=== PATIENT | male | born 1985 | race Caucasian/White ===

== ENCOUNTER 2020-06-13 01:05 | Emergency (ER) | payer OTHER, SELFPAY ==
[2020-06-13 02:13] VITALS: BP 119/71; PULSE 80; RESP 18; TEMP 36.7; O2SAT 98; BMI 22.9
--- NOTE | 2020-06-13 04:51 | PC.NURSE ---
pt was brought back to room 2, waited just a couple of min and walked to the waiting room where his ride was waiting for him. this rn had a conversation with the encouraged the pt to be seen, pt states he is feeling better and doesnt need to be seen. pt was seen leaving the hospital while in the waiting room then came back in. Question of pt using herion while waiting to be brought back. pt . pt had a steady gait. aox3 no s/s of distress. pt left without treatment.
== END 2020-06-13 04:45 | disposition left against medical advice (07) ==
PROVIDERS: Emergency Provider Emergency Medicine; PCP Internal Medicine
DX: M79.643 Pain in unspecified hand (principal); F11.10 Opioid abuse, uncomplicated
CPT/HCPCS: 99282

== ENCOUNTER 2020-09-06 15:28 | Emergency (ER) | payer OTHER, SELFPAY ==
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
--- NOTE | ~2020-09-06 | CT_ITS ---
EXAMINATION: CT HEAD WITHOUT CONTRAST CLINICAL INFORMATION: Slurred speech since 11:00 AM. COMPARISON: Outside CT head noncontrast 07/27/2020, 07/18/2020, 07/16/2020 ([facility]). TECHNIQUE: Contiguous axial imaging was performed from the skull base to vertex without intravenous administration of contrast. Additional 2-D coronal and sagittal reformatted images are generated on the CT workstation and uploaded to PACS. This CT examination was performed using dose optimization techniques as appropriate, variously including the following: *Automated exposure control *Adjustment of mA and/or kV according to patient size (this includes techniques or standardized protocols for targeted exams where dose is matched to indication/reason for exam; i.e. extremities or head) *Use of iterative reconstruction technique DLP: 668 mGy-cm FINDINGS: There is no intracranial hemorrhage, hematoma, or extra-axial fluid collection. The ventricles are normal in size. There is no hydrocephalus, edema, or mass effect. The blue-white matter differentiation appears symmetric. There is no visible acute territorial infarct or mass lesion. No acute calvarial fracture. There is no pneumocephalus or orbital emphysema. There are no air-fluid levels in the sinuses or middle ears or mastoids. The fact posterior lateral left maxillary sinus wall again seen with some herniation of infratemporal fossa fat similar to outside exams. There is hardware in the upper cervical spine. CT/CT head/brain wo con IMPRESSION: No acute intracranial abnormality.
[2020-09-06 15:39] VITALS: BP 105/72; BP 116/75; PULSE 80; PULSE 97; RESP 18; TEMP 36.5; O2SAT 100; O2SAT 98; BMI 20.9
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
[2020-09-06 16:51] LABS: MANUAL DIFF FLAG NO
[2020-09-06 16:53] LABS: Basophils Percent Auto 0.3 % (0-2); Eosinophils Absolute Auto 0.1 X10*3/uL (0.0-0.4); Eosinophils Percent Auto 1.9 % (0-4); Hematocrit 38.1 % (42-52); Hemoglobin 12.4 g/dl (14.0-18.0); Imm Gran Abs Auto 0.03 X10*3/uL (0.00-0.03); Imm Gran Pct Auto 0.5 % (0.0-0.4); Lymphocytes Absolute Auto 1.4 X10*3/uL (1.2-4.9); Lymphocytes Percent Auto 22.6 % (20-40); Mean Corpuscular HGB Conc 32.5 g/dl (31.0-36.0); Mean Corpuscular Volume 89.2 fL (80-98); Mean Platelet Volume 8.4 fL (9.4-12.4); Monocytes Absolute Auto 0.6 X10*3/uL (0.1-1.2); Monocytes Percent Auto 10.2 % (2-11); Neutrophils Percent Auto 64.5 % (45-73); Platelet Count 530 X10*3/uL (160-400); Red Blood Count 4.27 X10*6/uL (4.60-5.80); Red Cell Distribution Width 16.3 % (11.0-16.0); White Blood Count 6.2 X10*3/uL (4.8-10.8)
[2020-09-06 16:58] LABS: INTERNATIONAL NORM RATIO 1.2 (0.9-1.1); Prothrombin Time 13.5 SEC (9.9-13.0)
[2020-09-06 17:17] LABS: Alanine Aminotransferase 9 U/L (0-40); Albumin Level 4.4 g/dL (3.5-5.0); Alkaline Phosphatase 314 U/L (39-117); Anion Gap 14 (12-20); Aspartate Amino Transferase 13 U/L (5-37); Bilirubin Direct 0.2 mg/dL (0.0-0.5); Bilirubin Total 0.4 mg/dL (0.0-1.0); Blood Urea Nitrogen 8 mg/dL (9-16); Calcium 10.4 mg/dL (8.4-10.2); Carbon Dioxide 29 mmol/L (22-29); Chloride 102 mmol/L (96-108); Creatinine Clr Calc Pharmacy 131.3; Estimated Glomerular Filt Rate > 60; Glucose Random 99 mg/dL (60-115); Magnesium 2.1 mg/dL (1.6-2.6); Potassium 4.3 mmol/L (3.3-5.1); Sodium 141 mmol/L (135-145); Total Protein 7.6 g/dL (6.5-8.0)
[2020-09-06 18:18] VITALS: BP 103/68; PULSE 87; RESP 16; O2SAT 99
[2020-09-06 19:36] LABS: Glucose Urine UA NEG (NEG); Leukocyte Esterase Urine NEG (NEG); Nitrite Urine NEG (NEG); PH 7.5 (5.0-8.0); Urine Blood NEG (NEG); Urine Ketones NEG (NEG); Urine Protein NEG (NEG-TRACE)
[2020-09-06 19:39] LABS: Appearance Urine HAZY; Color Urine YELLOW
[2020-09-06 19:55] LABS: Amphetamine Screen Urine Not Detected (Not Detect); Barbiturates, Urine Not Detected (Not Detect); Benzodiazepines Screen Urine POSITIVE (Not Detect); Cannabinoid Screen Urine Not Detected (Not Detect); Cocaine Screen Urine Not Detected (Not Detect); Opiate Screen Urine Not Detected (Not Detect); Phencyclidine Screen Urine Not Detected (Not Detect)
[2020-09-06 20:00] VITALS: BP 111/71; PULSE 93; RESP 16; O2SAT 99
== END 2020-09-06 22:02 | disposition home or self-care (01) ==
PROVIDERS: Nurse Practitioner Family; Emergency Provider Emergency Medicine Emergency Medical Services
DX: R47.1 Dysarthria and anarthria (principal)
CPT/HCPCS: 36415; 70450; 70551; 80048; 80076; 80307; 81003; 83735; 85025; 85610; 99284